=== PATIENT | female | born 1945 | race Two or more races ===

== ENCOUNTER 2018-11-24 04:58 | Emergency (ER) | payer MEDICARE, BC, OTHER ==
[2018-11-24] MEDS: DEXAMETHASONE 10 MG/ML 1 ML INJ IM (06:37)
[2018-11-24] MEDS: KETOROLAC 60 MG INJ IM (06:37)
== END 2018-11-24 07:37 | disposition home or self-care (01) ==
LOC: FTE 04:58
DX: M54.5 Low back pain (principal)
CPT/HCPCS: 96372; 99284-25